=== PATIENT | male | born 1980 | race Caucasian/White ===

== ENCOUNTER 2020-06-10 09:42 | Emergency (ER) | payer OTHER ==
[2020-06-10 09:53] VITALS: BP 131/76; PULSE 71; TEMP 98.4; BMI 28.7
[2020-06-10] MEDS ORDERED: LIDOCAINE 5% TOPICAL PATCH TP ONE (10:08)
[2020-06-10] MEDS ORDERED: KETOROLAC TROMETHAMINE 60 MG/2 ML VIAL IM ONE (10:08)
[2020-06-10] MEDS ORDERED: LIDOCAINE 5% TOPICAL PATCH ONE (10:11)
[2020-06-10] MEDS ORDERED: KETOROLAC TROMETHAMINE 30 MG/1 ML VIAL ONE (10:11)
== END 2020-06-10 10:52 | disposition home or self-care (01) ==
LOC: JER 09:42 → JERFT 09:42
PROC: 3E0233Z Introduction of Anti-inflammatory into Muscle, Percutaneous Approach (ICD-10-PCS; principal; 2020-06-10)
DX: M54.5 Low back pain (principal)
CPT/HCPCS: 72100-TC-FY; 99284-25

== ENCOUNTER 2021-04-15 05:03 | Emergency (ER) | payer OTHER ==
[2021-04-15 05:06] VITALS: BP 135/72; PULSE 73; TEMP 98.1; BMI 28.7
[2021-04-15] MEDS ORDERED: IBUPROFEN 400 MG TABLET (FP) PO ONE (05:43)
[2021-04-15] MEDS ORDERED: IBUPROFEN 600 MG TABLET (FP) PO ONE (05:54)
== END 2021-04-15 06:45 | disposition home or self-care (01) ==
LOC: JER 05:03
DX: S39.012A Strain of muscle, fascia and tendon of lower back, initial encounter (principal); X50.0XXA Overexertion from strenuous movement or load, initial encounter
CPT/HCPCS: 73110-TC-RT-FY; 99283-25

== ENCOUNTER 2023-03-04 04:50 | Day surgery (SDC) | payer BC, OTHER ==
[2023-02-26 10:38] VITALS: BMI 28.7
[2023-03-04 09:19] VITALS: TEMP 97.7
[2023-03-04 09:42] VITALS: BP 128/72; PULSE 64; RESP 18
== END 2023-03-04 09:50 | disposition home or self-care (01) ==
LOC: JASU-ENDO 04:50
PROVIDERS: ATTEND Internal Medicine Gastroenterology
PROC: 0DJD8ZZ Inspection of Lower Intestinal Tract, Via Natural or Artificial Opening Endoscopic (ICD-10-PCS; principal; 2023-03-04 08:30)
DX: Z12.11 Encounter for screening for malignant neoplasm of colon (principal); K64.8 Other hemorrhoids; Z80.0 Family history of malignant neoplasm of digestive organs

== ENCOUNTER 2023-12-13 22:20 | Emergency (ER) | payer OTHER ==
[2023-12-13 22:23] VITALS: BP 144/81; PULSE 64; RESP 18; TEMP 98.2; BMI 27.9
== END 2023-12-14 | disposition home or self-care (01) ==
LOC: JERFT 22:20
DX: M54.50 Low back pain, unspecified (principal); W10.8XXA Fall (on) (from) other stairs and steps, initial encounter
CPT/HCPCS: 99283-25